=== PATIENT | male | born 1975 | race Two or more races ===

== ENCOUNTER 2021-07-04 06:44 | Day surgery (SDC) | payer OTHER | END 2021-07-04 11:45 | disposition home or self-care (01) | LOC: AMB-ENDOS 06:44 | PROVIDERS: ATTEND Surgery | DX: K52.89 Other specified noninfective gastroenteritis and colitis (principal) ==

== ENCOUNTER 2021-09-27 07:55 | Day surgery (SDC) | payer OTHER ==
[2021-09-27] MEDS ORDERED: PERCOCET 5-3251 EACH PO (14:20)
== END 2021-09-27 17:40 | disposition home or self-care (01) ==
LOC: CIR.AMB 07:55
PROVIDERS: ATTEND Surgery
DX: K60.3 Anal fistula (principal); K62.4 Stenosis of anus and rectum; K51.813 Other ulcerative colitis with fistula; Z20.822 Contact with and (suspected) exposure to COVID-19